=== PATIENT | male | born 1935 | race Caucasian/White ===

== ENCOUNTER 2023-09-23 11:31 | Inpatient (IN) | payer MEDICARE, OTHER ==
[~2023-09-23] VITALS: Ht 167.6 cm; Wt 78.0 kg
[2023-09-23 11:32] VITALS: BP_SYST 133; PULSE 86; RESP 20; TEMP 97.2; O2SAT 96
[2023-09-23] MEDS ORDERED: MORPHINE 4 MG INJ. 4 MG/ML VIAL IVP ONE (12:00)
[2023-09-23] MEDS ORDERED: NACL IV ONE ×2 (12:00)
[2023-09-23] MEDS ORDERED: NS IV ONE ×2 (12:00)
[2023-09-23] MEDS ORDERED: KETAMINE HCL IV ONE ×2 (12:00)
[2023-09-23 12:13] LABS: BASOPHILS % (AUTO) 0.5 % (0.0-2.0); EOSINOPHILS # (AUTO) 0.1 K/uL (0.0-0.4); EOSINOPHILS % (AUTO) 2.1 % (0.0-4.0); HEMATOCRIT 30.7 % (36-54); HEMOGLOBIN 10.2 g/dL (14.0-18.0); LYMPHOCYTES # (AUTO) 0.8 K/uL (1.0-5.5); LYMPHOCYTES % (AUTO) 13.9 % (20.5-51.5); MEAN CORPUSCULAR HEMOGLOBIN 31 pg (27-31); MEAN CORPUSCULAR HGB CONC 33 % (32-36); MEAN CORPUSCULAR VOLUME 92 fL (79.0-98.0); MONOCYTES # (AUTO) 0.5 K/uL (0.0-1.0); MONOCYTES % (AUTO) 9.4 % (1.7-9.3); NEUTROPHILS # (AUTO) 4.3 K/uL (1.8-7.7); NEUTROPHILS % (AUTO) 74.1 % (40.0-70.0); PLATELET COUNT (AUTO) 246 K/uL (130-430); RED BLOOD CELL COUNT(AUTO) 3.33 MIL/uL (4.2-6.2); RED CELL DISTRIBUTION WIDTH 13.6 % (9.0-15.0); WHITE BLOOD COUNT (AUTO) 5.8 K/uL (4.8-10.8)
[2023-09-23 12:30] LABS: ANION GAP 8 (5-15); CALCIUM 8.8 mg/dL (8.4-11.0); CARBON DIOXIDE 31 mmol/L (23-29); CHLORIDE 100 mmol/L (98-107); GLUCOSE 129 mg/dL (74-106); POTASSIUM 3.8 mmol/L (3.5-5.1); SODIUM SERUM 139 mmol/L (136-145); UREA NITROGEN, BLOOD 33 mg/dL (8-21)
[2023-09-23] MEDS ORDERED: KETAMINE HCL IN 0.9 % NACL 50 MG/5 ML SYRINGE ONE (12:43)
[2023-09-23 13:25] LABS: BILIRUBIN,URINE NEGATIVE (NEGATIVE); BLOOD, URINE NEGATIVE (NEGATIVE); CLARITY/URINE CLEAR (CLEAR); COLOR,URINE YELLOW (YELLOW); GLUCOSE,URINE NEGATIVE (NEGATIVE); KETONES,URINE NEGATIVE (NEGATIVE); LEUKOCYTE ESTERASE ,URINE NEGATIVE (NEGATIVE); NITRITE, URINE NEGATIVE (NEGATIVE); PROTEIN URINE TRACE (NEGATIVE); UROBILINOGEN,URINE 0.2 (0.2-1.0)
[2023-09-23 13:42] LABS: BACTERIA,URINE RARE /HPF (None Seen); RBC,URINE NONE SEEN /HPF (0-3); WBC,URINE 0-3 /HPF (0-3)
[2023-09-23] MEDS ORDERED: ONDANSETRON HCL 4 MG/2 ML VIAL IVP PRN (14:00)
[2023-09-23] MEDS ORDERED: HYDROcodone/ACETAMIN 5-325 MG TAB (NORCO/ VICODIN) PO PRN (14:00)
[2023-09-23] MEDS ORDERED: HYDR-3927 PO (14:05)
[2023-09-23] MEDS ORDERED: BUDE3CAP11 PO (14:05)
[2023-09-23] MEDS ORDERED: GABA-529 PO (14:05)
[2023-09-23] MEDS ORDERED: MESA1.2T3 PO (14:05)
[2023-09-23] MEDS ORDERED: MAGN400T10 PO (14:05)
[2023-09-23] MEDS ORDERED: APIX2.5T PO (14:05)
[2023-09-23] MEDS ORDERED: PROP150T2 PO (14:05)
[2023-09-23] MEDS: HYDROcodone/ACETAMIN 10-325 MG TAB PO PRN ×2 (16:32→21:07)
[2023-09-23] MEDS ORDERED: BISACODYL 5 MG TABLET.DR (DULCOLAX) PO PRN (17:30)
[2023-09-23] MEDS ORDERED: DOCUSATE SODIUM 100 MG CAPSULE PO PRN (17:30)
[2023-09-23] MEDS: PROPAFENONE HCL 150 MG TABLET PO SCH (21:07)
[2023-09-23] MEDS: MESALAMINE 400 MG CAPSULE.DR PO SCH (21:09)
[2023-09-23] MEDS: APIXABAN 2.5 MG TABLET PO SCH (21:10)
[2023-09-23] MEDS: GABAPENTIN 300 MG CAPSULE PO SCH (21:10)
[2023-09-23] MEDS: CYCLOBENZAPRINE HCL 10 MG TABLET (FLEXERIL) PO SCH (21:11)
[2023-09-23 22:25] VITALS: BP_SYST 139; PULSE 98; RESP 18; TEMP 98
[2023-09-23 22:38] VITALS: O2SAT 98
[2023-09-24] MEDS ORDERED: LORazepam 2 MG/ML VIAL IVP PRN (00:15)
[2023-09-24] MEDS: HYDROcodone/ACETAMIN 10-325 MG TAB PO PRN (01:20)
[2023-09-24] MEDS ORDERED: QUEtiapine FUMARATE 25 MG TABLET PO ONE (01:30)
[2023-09-24] MEDS ORDERED: QUEtiapine FUMARATE 25 MG TABLET ONE (01:30)
[2023-09-24 06:05] LABS: ERYTHROCYTE SEDIMENTATION RATE 40 MM/HR (0-15)
[2023-09-24 06:21] LABS: BASOPHILS % (AUTO) 0.8 % (0.0-2.0); EOSINOPHILS # (AUTO) 0.1 K/uL (0.0-0.4); EOSINOPHILS % (AUTO) 1.9 % (0.0-4.0); HEMATOCRIT 31.8 % (36-54); HEMOGLOBIN 10.6 g/dL (14.0-18.0); MEAN CORPUSCULAR HEMOGLOBIN 31 pg (27-31); MEAN CORPUSCULAR HGB CONC 33 % (32-36); MEAN CORPUSCULAR VOLUME 92 fL (79.0-98.0); MONOCYTES # (AUTO) 0.6 K/uL (0.0-1.0); MONOCYTES % (AUTO) 11.1 % (1.7-9.3); NEUTROPHILS # (AUTO) 3.7 K/uL (1.8-7.7); NEUTROPHILS % (AUTO) 67.2 % (40.0-70.0); PLATELET COUNT (AUTO) 240 K/uL (130-430); RED BLOOD CELL COUNT(AUTO) 3.46 MIL/uL (4.2-6.2); RED CELL DISTRIBUTION WIDTH 13.6 % (9.0-15.0); WHITE BLOOD COUNT (AUTO) 5.5 K/uL (4.8-10.8)
[2023-09-24 07:01] LABS: ANION GAP 10 (5-15); CALCIUM 8.9 mg/dL (8.4-11.0); CARBON DIOXIDE 27 mmol/L (23-29); CHLORIDE 105 mmol/L (98-107); CREATININE 2.37 mg/dL (0.55-1.30); GLUCOSE 112 mg/dL (74-106); SODIUM SERUM 142 mmol/L (136-145); UREA NITROGEN, BLOOD 31 mg/dL (8-21)
[2023-09-24 08:00] VITALS: BP_SYST 142; PULSE 99; RESP 18; TEMP 97.8; O2SAT 95
[2023-09-24] MEDS: PROPAFENONE HCL 150 MG TABLET PO SCH ×2 (10:50→20:43)
[2023-09-24] MEDS: MESALAMINE 400 MG CAPSULE.DR PO SCH ×4 (10:50→20:44)
[2023-09-24] MEDS: APIXABAN 2.5 MG TABLET PO SCH ×2 (10:53→20:59)
[2023-09-24] MEDS ORDERED: LORazepam 2 MG/ML VIAL IM ONE (11:00)
[2023-09-24 11:05] VITALS: BP_SYST 109; PULSE 102; RESP 16; TEMP 98.3; O2SAT 96
[2023-09-24 17:01] VITALS: BP_SYST 130; PULSE 112; RESP 16; TEMP 99.6; O2SAT 93
[2023-09-24 20:00] VITALS: BP_SYST 149; PULSE 103; RESP 20; TEMP 99; O2SAT 97
[2023-09-24 20:30] VITALS: O2SAT 97
[2023-09-24] MEDS: GABAPENTIN 300 MG CAPSULE PO SCH (20:43)
[2023-09-24] MEDS: CYCLOBENZAPRINE HCL 10 MG TABLET (FLEXERIL) PO SCH (20:43)
[2023-09-24] MEDS ORDERED: LORazepam 1 MG TABLET PO PRN (20:45)
[2023-09-24] MEDS ORDERED: HALOPERIDOL LACTATE 5 MG/ML VIAL IM PRN (20:45)
[2023-09-24] MEDS ORDERED: QUEtiapine FUMARATE 25 MG TABLET PO SCH (21:00)
[2023-09-25 01:15] VITALS: BP_SYST 127; PULSE 114; RESP 20; TEMP 98.2; O2SAT 97
[2023-09-25 08:00] VITALS: BP_SYST 149; PULSE 91; RESP 18; TEMP 97.7; O2SAT 95
[2023-09-25 09:00] VITALS: O2SAT 95
[2023-09-25 11:07] VITALS: BP_SYST 151; PULSE 84; RESP 16; TEMP 97; O2SAT 93
[2023-09-25] MEDS ORDERED: SER25 PO (11:09)
[2023-09-25] MEDS: MESALAMINE 400 MG CAPSULE.DR PO SCH ×2 (11:22→13:52)
[2023-09-25] MEDS: PROPAFENONE HCL 150 MG TABLET PO SCH (11:25)
[2023-09-25] MEDS: APIXABAN 2.5 MG TABLET PO SCH (11:26)
[2023-09-25 12:00] VITALS: BP_SYST 139; PULSE 91; RESP 18; TEMP 97.1; O2SAT 95
== END 2023-09-25 15:00 | disposition home health service (06) | DRG 542 ==
LOC: SED 11:31 → SMU 13:58
PROVIDERS: ADMIT Internal Medicine; ATTEND Internal Medicine
DX: M48.55XA Collapsed vertebra, not elsewhere classified, thoracolumbar region, initial encounter for fracture (principal); G93.41 Metabolic encephalopathy; I48.20 Chronic atrial fibrillation, unspecified; K50.90 Crohn's disease, unspecified, without complications; N18.4 Chronic kidney disease, stage 4 (severe); G89.29 Other chronic pain; Z66 Do not resuscitate; Z79.899 Other long term (current) drug therapy; Z90.49 Acquired absence of other specified parts of digestive tract
CPT/HCPCS: 36415; 70450-TC; 72146; 76376; 80048; 81000; 81001; 81015; 82140; 83735; 84484; 85025; 85651-TC; 87081; 87086; 93005; 96374; 96375; 97116-GP; 97530-GP; 99285; J1630; J2060; J2270